=== PATIENT | male | born 1990 | race Caucasian/White ===

== ENCOUNTER 2020-11-30 20:39 | Emergency (ER) | payer BC ==
[~2020-11-30] VITALS: Ht 180.3 cm; Wt 86.2 kg
[2020-11-30 21:06] VITALS: BP 128/78; Ht 180.3 cm; Wt 86.2 kg
== END 2020-11-30 22:21 | disposition home or self-care (01) ==
LOC: ED 20:39
DX: S61.214A Laceration without foreign body of right ring finger without damage to nail, initial encounter (principal); W26.8XXA Contact with other sharp object(s), not elsewhere classified, initial encounter; Y93.89 Activity, other specified; Y92.89 Other specified places as the place of occurrence of the external cause; Y99.8 Other external cause status